=== PATIENT | female | born 1960 | race Caucasian/White ===

== ENCOUNTER → 2016-10-07 | Outpatient (CLI) | payer OTHER ==
--- NOTE | 2016-10-07 14:44 | MR ---
MRI cervical spine without contrast. History: Right hand weakness. Technique: MRI is performed of the cervical spine using a 1.5 [employer] MRI system. Sagittal and axial im aging was obtained with standard imaging sequences. Findings: Mild degenerative endplate changes seen at multiple levels. There is disk desiccation and d isk height narrowing at multiple levels. 1 mm of anterolisthesis of C4 on C5 and 1 mm of retrolisthes is of C6 on C7. Mild reversal the normal lordotic curvature over C5 and C6. Cervical spinal cord is n ormal in size and signal intensity. C2-C3: Unremarkable C3-C4: Mild uncovertebral joint hypertrophy is seen bilaterally causing mild bilateral neural foramin al narrowing. C4-C5: Uncovertebral joint hypertrophy bilaterally, left greater than right. Mild facet arthropathy o n the left. Moderate left and mild right neural foraminal narrowing. C5-C6: Mild broad annular bulge mildly effacing the anterior thecal sac. Uncovertebral joint hypertro phy and spurring and facet arthropathy is seen bilaterally more severe on the right than the left. Th ere is severe right and moderate left neural foraminal narrowing. C6-C7: Mild broad annular bulge mildly effacing the anterior thecal sac. Uncovertebral joint hypertro phy and spurring is seen bilaterally more severe on the left. Mild facet arthropathy bilaterally. Mod erate to severe left and moderate right neural foraminal narrowing. C7-C1: Mild facet arthropathy is seen bilaterally causing minimal bilateral neural foraminal narrowin g. Impression: Multilevel degenerative disk and degenerative joint disease cervical spine. Levels of mor e severe neural foraminal narrowing or at C5-C6 and C6-C7. Please see detailed description by level cuate hercules..
== END ==
LOC: FIMAGING 12:49
PROVIDERS: ATTEND Family Medicine
DX: M50.022 Cervical disc disorder at C5-C6 level with myelopathy (principal); M50.023 Cervical disc disorder at C6-C7 level with myelopathy